=== PATIENT | female | born 1950 | race African-American/Black ===

== ENCOUNTER 2016-12-18 20:09 | Emergency (ER) | payer MEDICARE, OTHER ==
[~2016-12-18] VITALS: Ht 172.7 cm; Wt 68.0 kg
--- NOTE | 2016-12-18 20:09 | Emergency Room Report ---
History of Present Illness General Source: Patient, EMS Present Illness HPI 64YOF BIBEMS for "discoloration of right heel." Assoc with pain Denies fever/chills, rash History of DM Atraumatic Contracted extremities chronically No calf pain/ttp/swelling Allergies: Coded Allergies: No Known Allergies (Unverified , 12/18/16) Patient History Past Medical History: DM Past Surgical History: none Pertinent Family History: none Social History: Denies: smoking, alcohol use, drug use Now: No Immunizations: UTD Reviewed Nursing Documentation: PMH: Agreed, PSxH: Agreed Review of Systems All Other Systems: negative except mentioned in HPI Physical Exam Sp02 EP Interpretation: reviewed, normal General Appearance: normal inspection, well appearing, no apparent distress, alert, GCS 15, non-toxic Head: normocephalic, atraumatic Eyes: bilateral eye PERRL, bilateral eye EOMI ENT: normal ENT inspection, hearing grossly normal, normal voice Neck: normal inspection, full range of motion, supple, no bony tend Respiratory: normal inspection, lungs clear, normal breath sounds, no respiratory distress, no retraction, no wheezing Cardiovascular #1: regular rate, rhythm, no edema Gastrointestinal: normal inspection, normal bowel sounds, non tender, soft, no guarding, no hernia Genitourinary: no CVA tenderness Musculoskeletal: normal inspection, back normal, normal range of motion, Idalia' s Sign negative Neurologic: normal inspection, alert, oriented x3, 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 No discoloration. No erythema. No cellulitis. No pallor. 2++ dorsalis pedis Medical Decision Making Diagnostic Impression: Primary Impression: Right foot pain ER Course Right foot pain VSS. Afebrile History of DM There is a small bunion on heel - no ulcer Contracted chronically No sign of cellulitis/infection Full ROM of foot. Normal color - unlikely PAD or PVD Analgesia provided DC back to SNF Informed PMD Dr Joel at 910pm that patient sent back to SNF Status: improved Disposition: XFER SNF Scripts Acetaminophen With Codeine (T#3) (TYLENOL #3 TAB*) Y Tab 1 TAB ORAL Q12 Y for foot pain, #20 TAB Prov: DESIREE ALBA M.D. 12/18/16 DESIREE ALBA M.D. Dec 18, 2016 20:09
[2016-12-18] MEDS ORDERED: ACETAMINOPHEN-1 EAC1 ORAL (20:11)
[2016-12-18 20:15] VITALS: BP 125/76
[2016-12-18 20:28] VITALS: BP 122/74
[2016-12-18] MEDS ORDERED: METOLAZONE5 MG PO (22:00)
[2016-12-18] MEDS ORDERED: MILK OF MA400 MG/51 ORAL (22:00)
[2016-12-18] MEDS ORDERED: LOSARTAN POTASS25 MG ORAL (22:00)
[2016-12-18] MEDS ORDERED: ASPIR 8181 MG ORAL (22:00)
[2016-12-18] MEDS ORDERED: ACETAMINOPHEN325 M1 ORAL (22:00)
[2016-12-18] MEDS ORDERED: DOCUSATE SODIU250 MG ORAL (22:00)
[2016-12-18] MEDS ORDERED: BENADRYL25 MG ORAL (22:00)
[2016-12-18] MEDS ORDERED: MULTIVITAMINS1 EAC2 ORAL (22:00)
[2016-12-18] MEDS ORDERED: LABETALOL HCL100 MG ORAL (22:00)
[2016-12-18] MEDS ORDERED: ELIQUIS2.5 MG PO (22:00)
[2016-12-18] MEDS ORDERED: OMEPRAZOLE40 M1 ORAL (22:00)
[2016-12-18] MEDS ORDERED: ADALAT10 MG ORAL (22:00)
[2016-12-18] MEDS ORDERED: VITAMIN C250 MG ORAL (22:00)
[2016-12-18] MEDS ORDERED: NORVASC5 MG ORAL (22:00)
[2016-12-18] MEDS ORDERED: FUROSEMIDE40 MG ORAL (22:00)
[2016-12-18] MEDS ORDERED: NITRO-BID1 GM TOPIC (22:00)
[2016-12-18] MEDS ORDERED: NORCO 10-325 T1 EACH ORAL (22:00)
== END 2016-12-18 20:30 ==
LOC: EDBD 20:09 → EMR 20:25
DX: M79.671 Pain in right foot (principal); M21.611 Bunion of right foot; E11.9 Type 2 diabetes mellitus without complications
CPT/HCPCS: 99283

== ENCOUNTER 2016-12-19 20:32 | Inpatient (IN) | payer MEDICARE, OTHER ==
[~2016-12-19] VITALS: Ht 172.7 cm; Wt 103.4 kg
[~2016-12-19 20:32] MED LIST: ACETAMINOPHEN-1 EAC1 ORAL; ACETAMINOPHEN325 M1 ORAL; ADALAT10 MG ORAL; ASPIR 8181 MG ORAL; BENADRYL25 MG ORAL; DOCUSATE SODIU250 MG ORAL; ELIQUIS2.5 MG PO; FUROSEMIDE40 MG ORAL; LABETALOL HCL100 MG ORAL; LOSARTAN POTASS25 MG ORAL; METOLAZONE5 MG PO; MILK OF MA400 MG/51 ORAL; MULTIVITAMINS1 EAC2 ORAL; NITRO-BID1 GM TOPIC; NORCO 10-325 T1 EACH ORAL; NORVASC5 MG ORAL; OMEPRAZOLE40 M1 ORAL; VITAMIN C250 MG ORAL
--- NOTE | 2016-12-19 20:36 | Emergency Room Report ---
History of Present Illness General Chief Complaint: Pain Source: Patient, EMS, PMD Present Illness HPI 66YOF sent by Dr Joel with DVT in right lower extremity Dr Joel stated was diagnosed earlier today Patient denies chest pain, SOB, abd pain, fever/chills No known prior history DVT/PE Allergies: Coded Allergies: No Known Allergies (Unverified , 12/18/16) Patient History Past Medical History: old chart reviewed Past Surgical History: none Pertinent Family History: none Social History: Denies: smoking, alcohol use, drug use Now: No Immunizations: UTD Reviewed Nursing Documentation: PMH: Agreed, PSxH: Agreed Nursing Documentation-PMH Hx Cardiac Problems: Yes - CHF,CAD,DVT Hx Gastrointestinal Problems: Yes - GERD Review of Systems All Other Systems: negative except mentioned in HPI Physical Exam Vital Signs Date Time Temp Pulse Resp B/P (MAP) Pulse Ox O2 Delivery O2 Flow Rate FiO2 12/19/16 20:25 98.6 72 18 157/80 97 Room Air Sp02 EP Interpretation: reviewed, normal General Appearance: normal inspection, well appearing, no apparent distress, alert Head: atraumatic ENT: normal ENT inspection, hearing grossly normal, normal voice Neck: normal inspection, full range of motion, supple, no bony tend Respiratory: normal inspection, lungs clear, normal breath sounds, no respiratory distress, no retraction, no wheezing Cardiovascular #1: regular rate, rhythm, no edema Gastrointestinal: normal inspection, normal bowel sounds, non tender, soft, no guarding, no hernia Genitourinary: no CVA tenderness Musculoskeletal: normal inspection, back normal, normal range of motion, Idalia' s Sign negative, other - right lower extrem: No calf ttp. negative Homans. No foot discoloration. No cellulitis. 2++ dorsalis pedis. No thigh pain/swelling. 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 No leuks. Sono here with DVT on verbal report from tech No chest pain, SOB, tachycardia/tachypnea - low suspicion for PE Lovenox given in ED renally-dosed at 1mg/kg Endorsed to Dr Joel for admission at 10pm Med/surg bed EKG Diagnostic Results Rate: normal Rhythm: NSR ST Segments: no acute changes ASA given to the pt in ED: No Rhythm Strip Diag. Results EP Interpretation: yes Rate: 75 Rhythm: NSR, no ectopy Chest X-Ray Diagnostic Results Chest X-Ray Diagnostic Results : Chest X-Ray Ordered: Yes # of Views/Limited/Complete: 1 View Indication: Other - DVT EP Interpretation: Yes Interpretation: no consolidation, no effusion, no pneumothorax, no acute cardiopulmonary disease Impression: No acute disease Electronically Signed by: Dr Desiree Alba MD Last Vital Signs Date Time Temp Pulse Resp B/P (MAP) Pulse Ox O2 Delivery O2 Flow Rate FiO2 12/19/16 20:25 98.6 72 18 157/80 97 Room Air Status: improved Disposition: ADMITTED INPATIENT Condition: Serious DESIREE ALBA M.D. Dec 19, 2016 20:36
[2016-12-19 21:10] LABS: BASOPHILS % (AUTO) 1.3 % (0.0-2.0); EOSINOPHILS % (AUTO) 2.5 % (0.0-3.0); LYMPHOCYTES % (AUTO) 27.1 % (20.0-45.0); MEAN CORPUSCULAR HEMOGLOBIN 29.4 PG (27.0-31.0); MEAN CORPUSCULAR HGB CONC 32.3 G/DL (32.0-36.0); MEAN CORPUSCULAR VOLUME 91 FL (80-99); MEAN PLATELET VOLUME 6.3 FL (6.5-10.1); MONOCYTES % (AUTO) 4.1 % (1.0-10.0); NEUTROPHILS % (AUTO) 65.1 % (45.0-75.0); PLATELET COUNT 317 K/UL (150-450); RED BLOOD COUNT 4.27 M/UL (4.20-5.40); RED CELL DISTRIBUTION WIDTH 12.4 % (11.6-14.8); WHITE BLOOD COUNT 9.2 K/UL (4.8-10.8)
[2016-12-19] MEDS ORDERED: Enoxaparin 150mg Inj SUBQ SCH (21:30)
[2016-12-19 21:31] LABS: ALANINE AMINOTRANSFERASE 9 U/L (3-33); ALBUMIN/GLOBULIN RATIO 0.8 (1.0-2.7); ANION GAP 10 (5-15); ASPARTATE AMINO TRANSFERASE 15 U/L (5-40); CALCIUM 9.4 mg/dL (8.6-10.2); CARBON DIOXIDE 28 mEQ/L (20-30); CHLORIDE 105 mEQ/L (98-107); CREATININE 1.5 mg/dL (0.5-0.9); GLOMERULAR FILTRATION RATE 42.3 mL/min (>60); HEMOLYSIS 65; SODIUM 143 mEQ/L (135-145); TOTAL PROTEIN 7.1 g/dL (6.6-8.7)
[2016-12-19] MEDS ORDERED: Enoxaparin 120 mg inj SUBQ SCH (21:45)
[2016-12-19] MEDS ORDERED: Enoxaparin 80mg Inj SUBQ ONE (22:00)
[2016-12-19] MEDS ORDERED: LORazepam Inj 2mg/ml 1ml IV PRN (22:15)
[2016-12-19] MEDS ORDERED: Zolpidem 5mg tab ORAL PRN (22:15)
[2016-12-19] MEDS ORDERED: Mylanta II UD 30ml ORAL PRN (22:15)
[2016-12-19] MEDS ORDERED: Miralax 17gm pkt ORAL PRN (22:15)
[2016-12-19 22:28] VITALS: BP 145/89
[2016-12-19 23:00] VITALS: BP 117/72
[2016-12-19 23:45] LABS: INR 0.9 (0.9-1.1); PROTHROMBIN TIME 9.8 SEC (9.30-11.50)
[2016-12-20] VITALS: BP 120/75
[2016-12-20 04:00] VITALS: BP 108/65
[2016-12-20 07:08] LABS: BASOPHILS % (AUTO) 1.2 % (0.0-2.0); EOSINOPHILS % (AUTO) 3.1 % (0.0-3.0); LYMPHOCYTES % (AUTO) 37.1 % (20.0-45.0); MEAN CORPUSCULAR HEMOGLOBIN 28.9 PG (27.0-31.0); MEAN CORPUSCULAR HGB CONC 31.8 G/DL (32.0-36.0); MEAN CORPUSCULAR VOLUME 91 FL (80-99); MEAN PLATELET VOLUME 6.8 FL (6.5-10.1); MONOCYTES % (AUTO) 5.2 % (1.0-10.0); NEUTROPHILS % (AUTO) 53.5 % (45.0-75.0); PLATELET COUNT 308 K/UL (150-450); RED BLOOD COUNT 3.97 M/UL (4.20-5.40); RED CELL DISTRIBUTION WIDTH 12.6 % (11.6-14.8); WHITE BLOOD COUNT 10.2 K/UL (4.8-10.8)
[2016-12-20 07:34] LABS: ALBUMIN/GLOBULIN RATIO 0.8 (1.0-2.7); CALCIUM 9.3 mg/dL (8.6-10.2); CHOLESTEROL/HDL RATIO 7.5 (3.3-4.4); CREATININE 1.5 mg/dL (0.5-0.9); GLOMERULAR FILTRATION RATE 42.3 mL/min (>60); POTASSIUM 4.7 mEQ/L (3.4-4.9); TOTAL PROTEIN 6.8 g/dL (6.6-8.7)
[2016-12-20 08:00] VITALS: BP 118/66
[2016-12-20] MEDS: Losartan 25mg tab ORAL SCH (08:56)
[2016-12-20] MEDS: Furosemide 40mg tab ORAL SCH (08:56)
[2016-12-20] MEDS ORDERED: Enoxaparin 80mg Inj SUBQ SCH (09:00)
[2016-12-20] MEDS: Heparin 25,000u/D5W 500ml 500 ML IV SCH ×3 (09:29→17:10)
--- NOTE | 2016-12-20 09:44 | Diagnostic Imaging Report ---
Indication: Shortness of breath Technique: XRAY CHEST 1 V Comparison: None Findings: Cardiac silhouette is prominent. Atherosclerotic changes are seen. There is no consolidation, pneumothorax or pleural effusion. Degenerative changes of the spine are present. Impression: No acute cardiopulmonary disease.
--- NOTE | 2016-12-20 11:32 | Consultation ---
History of Present Illness General Date patient seen: Dec 20, 2016 Time patient seen: 09:30 Chief Complaint: Pain Referring physician: dr Joel Reason for Consultation: inpatient management Present Illness HPI 66y/ol female with PMH of HTN, CKD, DM was sent from SNF for acute DVT RLE, diagnosed prior to sending to ER Patient denied chest pain, SOB, abd pain, fever/chills Workup in ED revealed acute DVT RLE, Lovenox given in ED VSS no leukocytosis, stable HH BUN/creat -70/1,5- c/w known hx of CKD glucose -112 CXR no acute cardiopulmonary disease ECG with NSR patient was admitted for further amangeemtn of DVT Allergies: Coded Allergies: No Known Allergies (Unverified , 12/18/16) Medication History Scheduled Amlodipine Besylate (Norvasc), 5 MG ORAL DAILY, (Reported) Apixaban (Eliquis), 2.5 MG PO BID, (Reported) Ascorbic Acid* (Vitamin C*), 250 MG ORAL DAILY, (Reported) Aspirin* (Aspir 81*), 81 MG ORAL DAILY, (Reported) Docusate Sodium* (Docusate Sodium*), 250 MG ORAL DAILY, (Reported) Furosemide* (Lasix*), 40 MG ORAL DAILY, (Reported) Labetalol Hcl* (Normodyne*), 100 MG ORAL EVERY 12 HOURS, (Reported) Losartan Potassium* (Losartan Potassium*), 25 MG ORAL DAILY, (Reported) Metolazone (Metolazone), 5 MG PO DAILY, (Reported) Multivitamins* (Multivitamins*), 1 TAB ORAL DAILY, (Reported) Nifedipine (Nifedipine*), 30 MG ORAL BEDTIME, (Reported) Nitroglycerin (Nitro-Bid*), 1 INCH TOPIC BID, (Reported) Omeprazole (Omeprazole), 40 MG ORAL DAILY, (Reported) Scheduled PRN Acetaminophen With Codeine (T#3) (Tylenol #3 Tab*), 1 TAB ORAL Q12 PRN for foot pain Acetaminophen* (Acetaminophen 325MG Tablet*), 325 MG ORAL Q6H PRN for For Pain, (Reported) Diphenhydramine Hcl* (Benadryl*), 25 MG ORAL Q6H PRN for Itching, (Reported) Hydrocodone Bit/Acetaminophen 10-325* ([place] 10-325*), 1 TAB ORAL Q4H PRN for For Pain, (Reported) Magnesium Hydroxide* (Milk Of Magnesia*), 30 ML ORAL BID PRN for Constipation, ( Reported) Patient History History Provided By: Patient Healthcare decision maker Resuscitation status Full Code Advanced Directive on File No Past Medical/Surgical History Past Medical/Surgical History: (1) CKD (chronic kidney disease) (2) Diabetes mellitus (3) HTN (hypertension) Review of Systems Constitutional: Reports: weakness Eye: Reports: no symptoms ENT: Reports: no symptoms Respiratory: Reports: no symptoms Cardiovascular: Reports: other - HTN, high cholesterol Gastrointestinal: Reports: constipation Genitourinary: Reports: no symptoms Musculoskeletal: Reports: joint pain Skin: Reports: no symptoms Psychiatric: Reports: no symptoms Endocrine: Reports: other - diabetes Hematologic/Lymphatic: Reports: see HPI Physical Exam General Appearance: no apparent distress, alert, obese - responsive Lines, tubes and drains: peripheral HEENT: normocephalic, atraumatic, anicteric, mucous membranes moist Neck: non-tender, supple Respiratory/Chest: lungs clear - with moderate air exchange, no respiratory distress, no accessory muscle use Cardiovascular/Chest: normal peripheral pulses, normal rate, regular rhythm, no JVD Extremities: other - +1 edema RLE mild TTP Neurologic: abnormal gait, alert, responsive Musculoskeletal: atrophy - BLE Last 24 Hour Vital Signs Date Time Temp Pulse Resp B/P (MAP) Pulse Ox O2 Delivery O2 Flow Rate FiO2 12/20/16 08:56 118/66 12/20/16 08:56 62 118/66 12/20/16 08:56 62 118/66 12/20/16 08:00 97.5 62 16 118/66 97 Room Air 12/20/16 04:00 97.9 61 18 108/65 95 Room Air 12/20/16 00:00 98.0 70 18 120/75 96 Room Air 12/19/16 23:00 97.9 69 18 117/72 95 Room Air 12/19/16 22:28 98.6 60 18 145/89 97 Room Air 12/19/16 22:28 98.6 60 18 145/89 97 Room Air 12/19/16 20:25 98.6 72 18 157/80 97 Room Air Intake and Output 12/20/16 12/21/16 19:00 07:00 Intake Total 74.448 ml Balance 74.448 ml IV Total 74.448 ml Laboratory Tests Test 12/19/16 20:52 12/19/16 21:50 12/20/16 06:20 12/20/16 06:30 White Blood Count 9.2 K/UL (4.8-10.8) 10.2 K/UL (4.8-10.8) Red Blood Count 4.27 M/UL (4.20-5.40) 3.97 M/UL (4.20-5.40) L Hemoglobin 12.6 G/DL (12.0-16.0) 11.5 G/DL (12.0-16.0) L Hematocrit 39.0 % (37.0-47.0) 36.1 % (37.0-47.0) L Mean Corpuscular Volume 91 FL (80-99) 91 FL (80-99) Mean Corpuscular Hemoglobin 29.4 PG (27.0-31.0) 28.9 PG (27.0-31.0) Mean Corpuscular Hemoglobin Concent 32.3 G/DL (32.0-36.0) 31.8 G/DL (32.0-36.0) L Red Cell Distribution Width 12.4 % (11.6-14.8) 12.6 % (11.6-14.8) Platelet Count 317 K/UL (150-450) 308 K/UL (150-450) Mean Platelet Volume 6.3 FL (6.5-10.1) L 6.8 FL (6.5-10.1) Neutrophils (%) (Auto) 65.1 % (45.0-75.0) 53.5 % (45.0-75.0) Lymphocytes (%) (Auto) 27.1 % (20.0-45.0) 37.1 % (20.0-45.0) Monocytes (%) (Auto) 4.1 % (1.0-10.0) 5.2 % (1.0-10.0) Eosinophils (%) (Auto) 2.5 % (0.0-3.0) 3.1 % (0.0-3.0) H Basophils (%) (Auto) 1.3 % (0.0-2.0) 1.2 % (0.0-2.0) D-Dimer 734 ng/mL (<500) H Sodium Level 143 mEQ/L (135-145) 146 mEQ/L (135-145) H Potassium Level 5.0 mEQ/L (3.4-4.9) H 4.7 mEQ/L (3.4-4.9) Chloride Level 105 mEQ/L (98-107) 108 mEQ/L (98-107) H Carbon Dioxide Level 28 mEQ/L (20-30) 27 mEQ/L (20-30) Anion Gap 10 (5-15) 11 (5-15) Blood Urea Nitrogen 70 mg/dL (7-23) H 76 mg/dL (7-23) H Creatinine 1.5 mg/dL (0.5-0.9) H 1.5 mg/dL (0.5-0.9) H Estimat Glomerular Filtration Rate 42.3 mL/min (>60) 42.3 mL/min (>60) Glucose Level 112 mg/dL (74-106) H 102 mg/dL (74-106) Calcium Level 9.4 mg/dL (8.6-10.2) 9.3 mg/dL (8.6-10.2) Total Bilirubin < 0.2 mg/dL (0.0-1.2) 0.2 mg/dL (0.0-1.2) Aspartate Amino Transf (AST/SGOT) 15 U/L (5-40) 10 U/L (5-40) Alanine Aminotransferase (ALT/SGPT) 9 U/L (3-33) 6 U/L (3-33) Alkaline Phosphatase 136 U/L (35-104) H 125 U/L (35-104) H Total Protein 7.1 g/dL (6.6-8.7) 6.8 g/dL (6.6-8.7) Albumin 3.2 g/dL (3.5-5.2) L 3.2 g/dL (3.5-5.2) L Globulin 3.9 g/dL 3.6 g/dL Albumin/Globulin Ratio 0.8 (1.0-2.7) L 0.8 (1.0-2.7) L Prothrombin Time 9.8 SEC (9.30-11.50) Prothromb Time International Ratio 0.9 (0.9-1.1) Activated Partial Thromboplast Time 28 SEC (23-33) > 150 SEC (23-33) *H Triglycerides Level 99 mg/dL (< 150) Cholesterol Level 321 mg/dL (< 200) H LDL Cholesterol 258 mg/dL (60-99) H HDL Cholesterol 43 mg/dL (> 60) Cholesterol/HDL Ratio 7.5 (3.3-4.4) H Height (Feet): 5 Height (Inches): 8.00 Weight (Pounds): 228 Medications Current Medications Medications (Trade) Dose Ordered Sig/Keanu Route PRN Reason Start Time Stop Time Status Last Admin Dose Admin Acetaminophen (Tylenol) 650 mg Q4H PRN ORAL fever 12/19/16 22:15 01/18/17 22:14 Al Hydroxide/Mg Hydroxide (Mylanta II) 30 ml Q6H PRN ORAL dyspepsia 12/19/16 22:15 01/18/17 22:14 Amlodipine Besylate (Norvasc) 5 mg DAILY ORAL 12/20/16 09:00 01/19/17 08:59 Dextrose (Dextrose 50%) STAT PRN IV Hypoglycemia 12/19/16 22:15 01/18/17 22:14 Furosemide (Lasix) 40 mg DAILY ORAL 12/20/16 09:00 01/19/17 08:59 12/20/16 08:56 Heparin Sodium/ Dextrose 500 ml @ 28.957 mls/ hr adjust per protocol IV 12/20/16 09:10 01/19/17 09:09 12/20/16 09:29 Labetalol HCl (Normodyne) 100 mg EVERY 12 HOURS ORAL 12/20/16 09:00 01/19/17 08:59 Lorazepam (Ativan 2mg/ml 1ml) 0.5 mg Q4H PRN IV For Anxiety 12/19/16 22:15 12/26/16 22:14 Losartan Potassium (Cozaar) 25 mg DAILY ORAL 12/20/16 09:00 01/19/17 08:59 Morphine Sulfate (Morphine Sulfate) 1 mg Q4H PRN IVP For Pain 12/19/16 22:15 12/26/16 22:14 Nifedipine (Adalat) 30 mg BEDTIME ORAL 12/20/16 21:00 01/19/17 20:59 Ondansetron HCl (Zofran) 4 mg Q6H PRN IVP Nausea & Vomiting 12/19/16 22:15 01/18/17 22:14 Polyethylene Glycol (Miralax) 17 gm HSPRN PRN ORAL Constipation 12/19/16 22:15 01/18/17 22:14 Warfarin Sodium (Coumadin per pharmacy) 1 ea DAILY PRN MISC Per rx protocol 12/20/16 09:45 01/19/17 09:44 Warfarin Sodium (Coumadin) 5 mg COUMADIN ONCE ORAL 12/20/16 17:00 12/20/16 17:01 Zolpidem Tartrate (Ambien) 5 mg HSPRN PRN ORAL Insomnia 12/19/16 22:15 12/26/16 22:14 Assessment/Plan Assessment/Plan ASSESSMENT acute DVT RLE ( from SNF) HTN DM CKD Hyperlipemia mild anemia PLAN OF CARE MS floor venous Duplex BLE in ED verbal report + acute DVT RLE started on Heparin gtt and Coumadin to bridge Medications from SNF were reviewed and noted pt was on Eliquis unknown if prior hx of DVT vs PAF NSR in ED BP management with multiple regimen of anti HTN and optimize as needed BS management ( DM type 2), no anti glycemic from SNF , BS stable, hold on medications and check Hga1c first lipid panel with elevated LDL and TC educated on low fat low cholesterol diabetic diet start statin mild anemia on this am labs, likely due to CKD monitor renal parameters, lytes, avoid nephrotoxic case discussed and evaluated by supervising physician Adam Vidal)Mariola NP Dec 20, 2016 11:32
[2016-12-20 12:00] VITALS: BP 107/59
[2016-12-20] MEDS: Morphine Sulfate 2mg/ml Inj IVP PRN ×3 (15:12→20:42)
[2016-12-20 16:00] VITALS: BP 116/69
[2016-12-20] MEDS ORDERED: Warfarin Sodium 5mg ORAL ONE (17:00)
[2016-12-20] MEDS ORDERED: Heparin 25,000u/D5W 500ml 500 ML IV SCH ×2 (17:00)
[2016-12-20 20:00] VITALS: BP 122/61
[2016-12-20] MEDS: Atorvastatin 20mg tab ORAL SCH (20:41)
[2016-12-20] MEDS: NIFEdipine 10mg cap ORAL SCH (20:41)
[2016-12-21] VITALS: BP 117/67
--- NOTE | 2016-12-21 00:45 | History and Physical Report ---
DATE OF ADMISSION: 12/19/2016 TIME: At 3 p.m. CONSULTANTS: 1. Dr. Delgado. 2. Bridget Mohr M.D. CHIEF COMPLAINT: Deep venous thrombosis. Brief History: This is a 66-year-old female from [facility] who presents with a DVT of the leg. The patient apparently had been getting swelling and slightly tender in the leg. Duplex showed DVT and the patient was sent to [place] and admitted to medical floor. Currently, calm in bed, not talking much. Past Medical History: CVA, left lower extremity weakness, hypertension, diabetes, and edema. PAST SURGICAL HISTORY: None. Medications: Adalat, Lipitor, Coumadin, Norvasc, Lasix, Normodyne, Cozaar, Tylenol, Zofran, Ambien, and Ativan. ALLERGIES: Denies. SOCIAL HISTORY: No smoking. No alcohol. No intravenous drug abuse. FAMILY HISTORY: Noncontributory. Review of Systems: No chest pain. Slight short of breath. No nausea, vomiting, or diarrhea. PHYSICAL EXAMINATION: GENERAL: Calm in bed, oriented x2, in no acute distress. Vital Signs: Temperature is 97 degrees, pulse 62, respirations 16, and blood pressure 107/59. CARDIOVASCULAR: No murmurs. LUNGS: Poor exchange. ABDOMEN: Bowel sounds are positive. Nontender and nondistended. EXTREMITIES: No cyanosis or clubbing. There is 1+ edema. Neurological: The patient moves all extremities. Lower extremity weakness noted. Laboratory And Diagnostic Data: Hemoglobin 11.5, otherwise CBC is normal. BMP shows sodium 146, chloride 108, BUN and creatinine 26 and 1.5 and glucose is 102. PTT is greater than 150 and INR is 0.9. ASSESSMENT: 1. Deep vein thrombosis. 2. Cerebrovascular accident. 3. Lower extremity weakness. 4. Hypertension. 5. Diabetes. 6. Edema. 7. Renal failure. 8. Anemia. Plan: Continue pre-medications. OT/PT. Dietary evaluation. CBC and BMP in the morning. Anticoagulate. Blood pressure and blood sugar control. Dietary followup. Dr. Delgado, Dr. Mohr, and Dr. Mosher to consult. Froilan Joel D.O. DR: FADI JOB#: [id number] CC:
[2016-12-21] MEDS: Morphine Sulfate 2mg/ml Inj IVP PRN ×2 (03:08→17:27)
[2016-12-21 04:00] VITALS: BP 134/60
[2016-12-21 07:00] LABS: BASOPHILS % (AUTO) 1.1 % (0.0-2.0); LYMPHOCYTES % (AUTO) 43.8 % (20.0-45.0); MEAN CORPUSCULAR HGB CONC 32.3 G/DL (32.0-36.0); MEAN CORPUSCULAR VOLUME 90 FL (80-99); MEAN PLATELET VOLUME 6.9 FL (6.5-10.1); MONOCYTES % (AUTO) 5.3 % (1.0-10.0); NEUTROPHILS % (AUTO) 46.8 % (45.0-75.0); PLATELET COUNT 290 K/UL (150-450); RED CELL DISTRIBUTION WIDTH 12.2 % (11.6-14.8); WHITE BLOOD COUNT 10.4 K/UL (4.8-10.8)
[2016-12-21 08:00] VITALS: BP 98/55
[2016-12-21] MEDS: Losartan 25mg tab ORAL SCH (09:00)
--- NOTE | 2016-12-21 09:03 | General Progress Note ---
Assessment/Plan Problem List: (1) DVT (deep venous thrombosis) ICD Codes: I82.409 - Acute embolism and thrombosis of unspecified deep veins of unspecified lower extremity SNOMED: 566579653 Qualifiers: Qualified Codes: I82.4Z1 - Acute embolism and thrombosis of unspecified deep veins of right distal lower extremity (2) Diabetes mellitus ICD Codes: E11.9 - Type 2 diabetes mellitus without complications SNOMED: 16916769 (3) HTN (hypertension) ICD Codes: I10 - Essential (primary) hypertension SNOMED: 35729312 (4) CKD (chronic kidney disease) ICD Codes: N18.9 - Chronic kidney disease, unspecified SNOMED: 127084824 Status: stable, progressing, tolerating diet Assessment/Plan ot pt diet anticoag cbc bmp am Subjective Constitutional: Reports: weakness Allergies: Coded Allergies: No Known Allergies (Unverified , 12/18/16) All Systems: reviewed and negative except above Subjective sleepy calm Objective Last 24 Hour Vital Signs Date Time Temp Pulse Resp B/P (MAP) Pulse Ox O2 Delivery O2 Flow Rate FiO2 12/21/16 04:00 98.2 68 19 134/60 96 Room Air 12/21/16 03:38 98.2 12/21/16 00:00 98.2 72 20 117/67 96 Room Air 12/20/16 20:41 76 122/71 12/20/16 20:41 76 122/71 12/20/16 20:00 98.1 76 19 122/61 96 Room Air 12/20/16 16:00 97.9 76 16 116/69 94 Room Air 12/20/16 12:00 97.9 16 107/59 96 Room Air Laboratory Tests 12/20/16 15:10: Activated Partial Thromboplast Time 124H 12/20/16 23:35: Activated Partial Thromboplast Time 75H 12/21/16 04:55: Activated Partial Thromboplast Time 71H, White Blood Count 10.4, Red Blood Count 3.70L, Hemoglobin 10.8L, Hematocrit 33.3L, Mean Corpuscular Volume 90, Mean Corpuscular Hemoglobin 29.0, Mean Corpuscular Hemoglobin Concent 32.3, Red Cell Distribution Width 12.2, Platelet Count 290, Mean Platelet Volume 6.9, Neutrophils (%) (Auto) 46.8, Lymphocytes (%) (Auto) 43.8, Monocytes (%) (Auto) 5.3, Eosinophils (%) (Auto) 3.0, Basophils (%) (Auto) 1.1, Prothrombin Time 10.0 , Prothromb Time International Ratio 1.0, Hemoglobin A1c 5.3 Height (Feet): 5 Height (Inches): 8.00 Weight (Pounds): 228 General Appearance: lethargic EENT: normal ENT inspection Neck: normal alignment Cardiovascular: normal peripheral pulses, normal rate, regular rhythm Respiratory/Chest: chest wall non-tender, lungs clear, normal breath sounds Abdomen: normal bowel sounds, non tender, soft Extremities: normal inspection Edema: 1+ Arm (L), 1+ Arm (R), 1+ Leg (L), 1+ Leg (R), 1+ Pedal (L), 1+ Pedal ( R), 1+ Generalized Neurologic: motor weakness Skin: normal pigmentation, warm/dry TANNA NORWOOD Dec 21, 2016 09:03
[2016-12-21] MEDS: Furosemide 40mg tab ORAL SCH (09:34)
[2016-12-21 12:00] VITALS: BP 156/75
--- NOTE | 2016-12-21 12:28 | Pulmonology Progress Note ---
Assessment/Plan Assessment/Plan ASSESSMENT acute DVT RLE HTN DM CKD Hyperlipemia mild anemia PLAN OF CARE MS floor in ED venous Duplex BLE c/w acute RLE DVT on Heparin gtt and Coumadin to bridge INR subtherapeutic Of note: Medications from SNF were reviewed and noted pt was on Eliquis unknown if prior hx of DVT vs PAF NSR in ED BP management with multiple regimen of anti HTN and optimize as needed BS management ( DM type 2), no anti glycemic from SNF , BS stable, hold on medications and check Hga1c first lipid panel with elevated LDL and TC educated on low fat low cholesterol diabetic diet started on statin anemia , likely due to CKD anemia w/up monitor counts clsoely monitor renal parameters, lytes, avoid nephrotoxic creat at the same range case discussed and evaluated by supervising physician Subjective Allergies: Coded Allergies: No Known Allergies (Unverified , 12/18/16) Subjective intermittent pain RLE no SOB, no chest pain, no palpitations Objective Last 24 Hour Vital Signs Date Time Temp Pulse Resp B/P (MAP) Pulse Ox O2 Delivery O2 Flow Rate FiO2 12/21/16 09:00 98/55 12/21/16 09:00 68 98/55 12/21/16 09:00 68 98/55 12/21/16 08:00 97.7 68 16 98/55 97 Room Air 12/21/16 04:00 98.2 68 19 134/60 96 Room Air 12/21/16 03:38 98.2 12/21/16 00:00 98.2 72 20 117/67 96 Room Air 12/20/16 20:41 76 122/71 12/20/16 20:41 76 122/71 12/20/16 20:00 98.1 76 19 122/61 96 Room Air 12/20/16 16:00 97.9 76 16 116/69 94 Room Air Objective General Appearance: no apparent distress, alert, obese, responsive Lines, tubes and drains: peripheral HEENT: normocephalic, atraumatic, anicteric, mucous membranes moist Neck: non-tender, supple Respiratory/Chest: lungs clear with moderate air exchange, no respiratory distress, no accessory muscle use Cardiovascular/Chest: normal peripheral pulses, normal rate, regular rhythm, no JVD Extremities: +1 edema RLE mild TTP Neurologic: abnormal gait, alert, responsive Musculoskeletal: atrophy - BLE Laboratory Tests 12/20/16 15:10: Activated Partial Thromboplast Time 124H 12/20/16 23:35: Activated Partial Thromboplast Time 75H 12/21/16 04:55: Activated Partial Thromboplast Time 71H, White Blood Count 10.4, Red Blood Count 3.70L, Hemoglobin 10.8L, Hematocrit 33.3L, Mean Corpuscular Volume 90, Mean Corpuscular Hemoglobin 29.0, Mean Corpuscular Hemoglobin Concent 32.3, Red Cell Distribution Width 12.2, Platelet Count 290, Mean Platelet Volume 6.9, Neutrophils (%) (Auto) 46.8, Lymphocytes (%) (Auto) 43.8, Monocytes (%) (Auto) 5.3, Eosinophils (%) (Auto) 3.0, Basophils (%) (Auto) 1.1, Prothrombin Time 10.0 , Prothromb Time International Ratio 1.0, Hemoglobin A1c 5.3 Current Medications Medications (Trade) Dose Ordered Sig/Keanu Route PRN Reason Start Time Stop Time Status Last Admin Dose Admin Acetaminophen (Tylenol) 650 mg Q4H PRN ORAL fever 12/19/16 22:15 01/18/17 22:14 Al Hydroxide/Mg Hydroxide (Mylanta II) 30 ml Q6H PRN ORAL dyspepsia 12/19/16 22:15 01/18/17 22:14 Amlodipine Besylate (Norvasc) 5 mg DAILY ORAL 12/20/16 09:00 01/19/17 08:59 Atorvastatin Calcium (Lipitor) 20 mg BEDTIME ORAL 12/20/16 21:00 01/19/17 20:59 12/20/16 20:41 Dextrose (Dextrose 50%) STAT PRN IV Hypoglycemia 12/20/16 12:00 01/19/17 11:59 Furosemide (Lasix) 40 mg DAILY ORAL 12/20/16 09:00 01/19/17 08:59 12/21/16 09:34 Heparin Sodium/ Dextrose 500 ml @ 22.752 mls/ hr adjust per protocol IV 12/20/16 17:00 01/19/17 16:59 12/20/16 17:10 Labetalol HCl (Normodyne) 100 mg EVERY 12 HOURS ORAL 12/20/16 09:00 01/19/17 08:59 12/20/16 20:41 Lorazepam (Ativan 2mg/ml 1ml) 0.5 mg Q4H PRN IV For Anxiety 12/19/16 22:15 12/26/16 22:14 Losartan Potassium (Cozaar) 25 mg DAILY ORAL 12/20/16 09:00 01/19/17 08:59 Morphine Sulfate (Morphine Sulfate) 1 mg Q4H PRN IVP Moderate Pain (Pain Scale 4-6) 12/20/16 22:15 12/27/16 22:14 Morphine Sulfate (Morphine Sulfate) 2 mg Q4H PRN IVP Severe Pain (Pain Scale 7-10) 12/20/16 20:30 12/27/16 20:29 12/21/16 03:08 Nifedipine (Adalat) 30 mg BEDTIME ORAL 12/20/16 21:00 01/19/17 20:59 12/20/16 20:41 Ondansetron HCl (Zofran) 4 mg Q6H PRN IVP Nausea & Vomiting 12/19/16 22:15 01/18/17 22:14 Polyethylene Glycol (Miralax) 17 gm HSPRN PRN ORAL Constipation 12/19/16 22:15 01/18/17 22:14 Warfarin Sodium (Coumadin per pharmacy) 1 ea DAILY PRN MISC Per rx protocol 12/20/16 09:45 01/19/17 09:44 Warfarin Sodium (Coumadin) 5 mg COUMADIN ONCE ORAL 12/21/16 17:00 12/21/16 17:01 Zolpidem Tartrate (Ambien) 5 mg HSPRN PRN ORAL Insomnia 12/19/16 22:15 12/26/16 22:14 Adam ManzanoMariola watters NP Dec 21, 2016 12:28
[2016-12-21] MEDS: Heparin 25,000u/D5W 500ml 500 ML IV SCH (13:19)
[2016-12-21 13:36] LABS: HEMOLYSIS 5; IRON 88 ug/dL (37-145); TOTAL IRON BINDING CAPACITY 175 ug/dL (250-400)
[2016-12-21 13:54] LABS: FERRITIN 555 ng/mL (13-150)
[2016-12-21 16:50] VITALS: BP 137/68
[2016-12-21] MEDS ORDERED: Warfarin Sodium 5mg ORAL ONE (17:00)
[2016-12-21 20:00] VITALS: BP 139/76
--- NOTE | 2016-12-21 20:57 | Consultation ---
History of Present Illness General Chief Complaint: Pain Referring physician: dr Joel Reason for Consultation: JULIANNE, Hypernatrenia Present Illness HPI Ms canales is a 66-year-old female, resident of [facility] with a PMHx significant for CVA, DM, HTN, who presents with a DVT of the leg. The patient apparently had leg swelling with tenderness and was transferred for further evaluation. Duplex showed DVT RLE, lab revealed elevated BUN/cr. Sodium elevated as well Allergies: Coded Allergies: No Known Allergies (Unverified , 12/18/16) Medication History Scheduled Amlodipine Besylate (Norvasc), 5 MG ORAL DAILY, (Reported) Apixaban (Eliquis), 2.5 MG PO BID, (Reported) Ascorbic Acid* (Vitamin C*), 250 MG ORAL DAILY, (Reported) Aspirin* (Aspir 81*), 81 MG ORAL DAILY, (Reported) Docusate Sodium* (Docusate Sodium*), 250 MG ORAL DAILY, (Reported) Furosemide* (Lasix*), 40 MG ORAL DAILY, (Reported) Labetalol Hcl* (Normodyne*), 100 MG ORAL EVERY 12 HOURS, (Reported) Losartan Potassium* (Losartan Potassium*), 25 MG ORAL DAILY, (Reported) Metolazone (Metolazone), 5 MG PO DAILY, (Reported) Multivitamins* (Multivitamins*), 1 TAB ORAL DAILY, (Reported) Nifedipine (Nifedipine*), 30 MG ORAL BEDTIME, (Reported) Nitroglycerin (Nitro-Bid*), 1 INCH TOPIC BID, (Reported) Omeprazole (Omeprazole), 40 MG ORAL DAILY, (Reported) Scheduled PRN Acetaminophen With Codeine (T#3) (Tylenol #3 Tab*), 1 TAB ORAL Q12 PRN for foot pain Acetaminophen* (Acetaminophen 325MG Tablet*), 325 MG ORAL Q6H PRN for For Pain, (Reported) Diphenhydramine Hcl* (Benadryl*), 25 MG ORAL Q6H PRN for Itching, (Reported) Hydrocodone Bit/Acetaminophen 10-325* (Hammond 10-325*), 1 TAB ORAL Q4H PRN for For Pain, (Reported) Magnesium Hydroxide* (Milk Of Magnesia*), 30 ML ORAL BID PRN for Constipation, ( Reported) Patient History Healthcare decision maker Resuscitation status Full Code Advanced Directive on File No Past Medical/Surgical History Past Medical/Surgical History: (1) Diabetes mellitus (2) HTN (hypertension) (3) CKD (chronic kidney disease) Review of Systems All Other Systems: negative except mentioned in HPI Physical Exam General Appearance: no apparent distress, alert Last 24 Hour Vital Signs Date Time Temp Pulse Resp B/P (MAP) Pulse Ox O2 Delivery O2 Flow Rate FiO2 12/21/16 16:50 98.1 63 16 137/68 100 Room Air 12/21/16 12:00 97.9 80 16 156/75 100 Room Air 12/21/16 09:00 98/55 12/21/16 09:00 68 98/55 12/21/16 09:00 68 98/55 12/21/16 08:00 97.7 68 16 98/55 97 Room Air 12/21/16 04:00 98.2 68 19 134/60 96 Room Air 12/21/16 03:38 98.2 12/21/16 00:00 98.2 72 20 117/67 96 Room Air Intake and Output 12/21/16 12/22/16 19:00 07:00 Intake Total 250.272 ml Balance 250.272 ml IV Total 250.272 ml # Voids 1 Laboratory Tests Test 12/20/16 23:35 12/21/16 04:55 Activated Partial Thromboplast Time 75 SEC (23-33) H 71 SEC (23-33) H White Blood Count 10.4 K/UL (4.8-10.8) Red Blood Count 3.70 M/UL (4.20-5.40) L Hemoglobin 10.8 G/DL (12.0-16.0) L Hematocrit 33.3 % (37.0-47.0) L Mean Corpuscular Volume 90 FL (80-99) Mean Corpuscular Hemoglobin 29.0 PG (27.0-31.0) Mean Corpuscular Hemoglobin Concent 32.3 G/DL (32.0-36.0) Red Cell Distribution Width 12.2 % (11.6-14.8) Platelet Count 290 K/UL (150-450) Mean Platelet Volume 6.9 FL (6.5-10.1) Neutrophils (%) (Auto) 46.8 % (45.0-75.0) Lymphocytes (%) (Auto) 43.8 % (20.0-45.0) Monocytes (%) (Auto) 5.3 % (1.0-10.0) Eosinophils (%) (Auto) 3.0 % (0.0-3.0) Basophils (%) (Auto) 1.1 % (0.0-2.0) Prothrombin Time 10.0 SEC (9.30-11.50) Prothromb Time International Ratio 1.0 (0.9-1.1) Hemoglobin A1c 5.3 % (< 6.0) Iron Level 88 ug/dL (37-145) Total Iron Binding Capacity 175 ug/dL (250-400) L Percent Iron Saturation 50 % (15-50) Unsaturated Iron Binding 87 ug/dL (112-346) L Ferritin 555 ng/mL (13-150) H Vitamin B12 Level 346 pg/mL (211-946) Folate Pending Height (Feet): 5 Height (Inches): 8.00 Weight (Pounds): 228 Medications Current Medications Medications (Trade) Dose Ordered Sig/Keanu Route PRN Reason Start Time Stop Time Status Last Admin Dose Admin Acetaminophen (Tylenol) 650 mg Q4H PRN ORAL fever 12/19/16 22:15 01/18/17 22:14 Al Hydroxide/Mg Hydroxide (Mylanta II) 30 ml Q6H PRN ORAL dyspepsia 12/19/16 22:15 01/18/17 22:14 Amlodipine Besylate (Norvasc) 5 mg DAILY ORAL 12/20/16 09:00 01/19/17 08:59 Atorvastatin Calcium (Lipitor) 20 mg BEDTIME ORAL 12/20/16 21:00 01/19/17 20:59 12/20/16 20:41 Dextrose (Dextrose 50%) STAT PRN IV Hypoglycemia 12/20/16 12:00 01/19/17 11:59 Furosemide (Lasix) 40 mg DAILY ORAL 12/20/16 09:00 01/19/17 08:59 12/21/16 09:34 Heparin Sodium/ Dextrose 500 ml @ 22.752 mls/ hr adjust per protocol IV 12/20/16 17:00 01/19/17 16:59 12/21/16 13:19 Labetalol HCl (Normodyne) 100 mg EVERY 12 HOURS ORAL 12/20/16 09:00 01/19/17 08:59 12/20/16 20:41 Lorazepam (Ativan 2mg/ml 1ml) 0.5 mg Q4H PRN IV For Anxiety 12/19/16 22:15 12/26/16 22:14 Losartan Potassium (Cozaar) 25 mg DAILY ORAL 12/20/16 09:00 01/19/17 08:59 Morphine Sulfate (Morphine Sulfate) 1 mg Q4H PRN IVP Moderate Pain (Pain Scale 4-6) 12/20/16 22:15 12/27/16 22:14 12/21/16 17:27 Morphine Sulfate (Morphine Sulfate) 2 mg Q4H PRN IVP Severe Pain (Pain Scale 7-10) 12/20/16 20:30 12/27/16 20:29 12/21/16 03:08 Nifedipine (Adalat) 30 mg BEDTIME ORAL 12/20/16 21:00 01/19/17 20:59 12/20/16 20:41 Ondansetron HCl (Zofran) 4 mg Q6H PRN IVP Nausea & Vomiting 12/19/16 22:15 01/18/17 22:14 Polyethylene Glycol (Miralax) 17 gm HSPRN PRN ORAL Constipation 12/19/16 22:15 01/18/17 22:14 Warfarin Sodium (Coumadin per pharmacy) 1 ea DAILY PRN MISC Per rx protocol 12/20/16 09:45 01/19/17 09:44 Zolpidem Tartrate (Ambien) 5 mg HSPRN PRN ORAL Insomnia 12/19/16 22:15 12/26/16 22:14 Assessment/Plan Problem List: (1) DVT (deep venous thrombosis) ICD Codes: I82.409 - Acute embolism and thrombosis of unspecified deep veins of unspecified lower extremity SNOMED: 091660827 Qualifiers: Qualified Codes: I82.4Z1 - Acute embolism and thrombosis of unspecified deep veins of right distal lower extremity (2) CKD (chronic kidney disease) ICD Codes: N18.9 - Chronic kidney disease, unspecified SNOMED: 171503752 (3) HTN (hypertension) ICD Codes: I10 - Essential (primary) hypertension SNOMED: 92631307 (4) Diabetes mellitus ICD Codes: E11.9 - Type 2 diabetes mellitus without complications SNOMED: 64332688 Assessment/Plan Monitor intake and output Renally dose meds, avoid nephrotoxins Monitor lytes, correct prn Pain med as needed Continue Heparin per protocol PPI Continue glycemic control Hematology consult recommended AM labs Desirae Andrews N.P. Dec 21, 2016 20:57
[2016-12-21] MEDS: Atorvastatin 20mg tab ORAL SCH (21:18)
[2016-12-21] MEDS: NIFEdipine 10mg cap ORAL SCH (21:19)
[2016-12-22] VITALS: BP 123/60
[2016-12-22 04:00] VITALS: BP 121/59
[2016-12-22 06:54] LABS: BASOPHILS % (AUTO) 1.2 % (0.0-2.0); EOSINOPHILS % (AUTO) 2.9 % (0.0-3.0); LYMPHOCYTES % (AUTO) 37.6 % (20.0-45.0); MEAN CORPUSCULAR HEMOGLOBIN 27.9 PG (27.0-31.0); MEAN CORPUSCULAR HGB CONC 31.3 G/DL (32.0-36.0); MEAN CORPUSCULAR VOLUME 89 FL (80-99); MEAN PLATELET VOLUME 7.1 FL (6.5-10.1); MONOCYTES % (AUTO) 5.1 % (1.0-10.0); NEUTROPHILS % (AUTO) 53.2 % (45.0-75.0); PLATELET COUNT 290 K/UL (150-450); RED BLOOD COUNT 3.77 M/UL (4.20-5.40); RED CELL DISTRIBUTION WIDTH 12.1 % (11.6-14.8); WHITE BLOOD COUNT 9.6 K/UL (4.8-10.8)
[2016-12-22 06:59] LABS: CALCIUM 8.7 mg/dL (8.6-10.2); CREATININE 1.5 mg/dL (0.5-0.9); GLOMERULAR FILTRATION RATE 42.3 mL/min (>60); POTASSIUM 4.6 mEQ/L (3.4-4.9)
[2016-12-22 07:07] LABS: PROTHROMBIN TIME 10.2 SEC (9.30-11.50)
[2016-12-22] MEDS ORDERED: Heparin 5000 units/ml inj IV ONE (08:00)
[2016-12-22] MEDS: Morphine Sulfate 2mg/ml Inj IVP PRN ×3 (08:07→18:14)
[2016-12-22] MEDS: Heparin 25,000u/D5W 500ml 500 ML IV SCH (08:20)
[2016-12-22 08:28] VITALS: BP 106/55
[2016-12-22] MEDS: Furosemide 40mg tab ORAL SCH (08:49)
[2016-12-22] MEDS: Losartan 25mg tab ORAL SCH (08:50)
--- NOTE | 2016-12-22 11:00 | Consultation ---
DATE OF CONSULTATION: 12/20/2016 HEMATOLOGY/ONCOLOGY CONSULTATION CONSULTING PHYSICIAN: Fernando Delgado M.D. REQUESTING PHYSICIAN: Froilan Joel D.O. REASON FOR CONSULTATION: Evaluation of DVT. IDENTIFICATION DATA: Dear Dr. Joel: The patient is a pleasant 66-year-old female with a past medical history significant for diabetes mellitus, CKD, hypertension, , acute DVT of bilateral lower extremities. She was sent in to the ER for evaluation and care. Hematology service was consulted. Again, the patient has a history of CKD as well as anemia. Hematology/Oncology service was consulted for evaluation. PAST MEDICAL HISTORY: As noted above. ALLERGIES: No known drug allergies. Current Medications: Adalat, edoxaban, Lasix, losartan, metolazone, multivitamin, nifedipine, nitroglycerin and omeprazole. Review Of Systems: Constitutional: No fever, chills, or night sweats. Skin: No rashes, bumps, or itching. HEENT: No headache, hearing or vision changes. Breasts: No lumps, pain, or discharge. Pulmonary: No cough, sputum, or shortness of breath. Gastrointestinal: No nausea, vomiting, or diarrhea. Genitourinary: No dysuria, frequency, or urgency. Musculoskeletal: No joint swelling, muscle pain, or trauma. PHYSICAL EXAMINATION: Vital Signs: Temperature 98 degrees Fahrenheit, pulse of 82, respiratory rate 12, blood pressure 118/60, and pulse oximetry 97% on room air. GENERAL: The patient is in no acute distress. PULMONARY: Diminished breath sounds. CARDIOVASCULAR: Regular rate. No S3 or S4. ABDOMEN: Soft, nontender, and nondistended. Extremities: There is 1+ edema in bilateral lower extremities. Tenderness to palpation. some atrophy is noted. Laboratory And Diagnostic Data: WBC 10.2, hemoglobin 11.5, hematocrit 36, and platelet count 388,000. Imaging: Chest x-ray reviewed, no acute cardiopulmonary process. . ASSESSMENT AND PLAN: 1. Acute deep venous thrombosis of bilateral lower extremities . At this time, we will continue the patient on Coumadin. INR . She should keep her INR between 2 and 3, as well as a heparin drip, and discharge once INR is at 2. Heparin drip has been used as a bridge. 2. Anemia secondary to chronic disease. 3. Anemia secondary to hemodilution. We will proceed with workup if hemoglobin is less than 10. 4. Hyperlipidemia management as per the primary physician. 5. Chronic kidney disease. I appreciate the consultation. Fernando Delgado M.D. DR: JAYCE JOB#: [id number] CC:
[2016-12-22 11:39] VITALS: BP 128/62
--- NOTE | 2016-12-22 12:52 | Diagnostic Imaging Report ---
APPROVED REPORT CPT Code: 78337 Present Symptoms Lower Extremity Pain: Right Lower Extremity Edema: Right Past History DVT :Right RIGHT LEG: Venous imaging reveals acute thrombus in the common femoral and superficial femoral veins. Remainder of the deep venous system is within normal limits. There is no evidence of thrombus within the mid to distal superficial femoral, popliteal or tibial segments. The greater saphenous vein is also within normal limits. DR. Little was notified of abnormal results at 09:45 hours.
--- NOTE | 2016-12-22 14:19 | General Progress Note ---
Assessment/Plan Problem List: (1) DVT (deep venous thrombosis) ICD Codes: I82.409 - Acute embolism and thrombosis of unspecified deep veins of unspecified lower extremity SNOMED: 999793153 Qualifiers: Qualified Codes: I82.4Z1 - Acute embolism and thrombosis of unspecified deep veins of right distal lower extremity (2) Diabetes mellitus ICD Codes: E11.9 - Type 2 diabetes mellitus without complications SNOMED: 64374534 (3) HTN (hypertension) ICD Codes: I10 - Essential (primary) hypertension SNOMED: 17286065 (4) CKD (chronic kidney disease) ICD Codes: N18.9 - Chronic kidney disease, unspecified SNOMED: 886478129 Status: stable, progressing, tolerating diet Assessment/Plan ot pt diet anticoag cbc bmp am promise ltach eval Subjective Constitutional: Reports: weakness Allergies: Coded Allergies: No Known Allergies (Unverified , 12/18/16) All Systems: reviewed and negative except above Subjective sleepy calm Objective Last 24 Hour Vital Signs Date Time Temp Pulse Resp B/P (MAP) Pulse Ox O2 Delivery O2 Flow Rate FiO2 12/22/16 11:39 97.8 66 19 128/62 96 Room Air 12/22/16 08:50 106/55 12/22/16 08:50 67 106/55 12/22/16 08:50 67 106/55 12/22/16 08:28 97.9 67 20 106/55 96 Room Air 12/22/16 04:00 97.8 67 18 121/59 97 Room Air 97.0 12/22/16 00:00 98.4 70 18 123/60 97 Room Air 12/21/16 21:19 65 139/76 12/21/16 21:17 65 139/76 12/21/16 20:00 97.8 65 18 139/76 96 Room Air 12/21/16 16:50 98.1 63 16 137/68 100 Room Air Intake and Output 12/22/16 12/23/16 19:00 07:00 Intake Total 134.445 ml Balance 134.445 ml IV Total 134.445 ml Laboratory Tests 12/22/16 06:24: White Blood Count 9.6, Red Blood Count 3.77L, Hemoglobin 10.5L, Hematocrit 33.5L , Mean Corpuscular Volume 89, Mean Corpuscular Hemoglobin 27.9, Mean Corpuscular Hemoglobin Concent 31.3L, Red Cell Distribution Width 12.1, Platelet Count 290, Mean Platelet Volume 7.1, Neutrophils (%) (Auto) 53.2, Lymphocytes (%) (Auto) 37.6, Monocytes (%) (Auto) 5.1, Eosinophils (%) (Auto) 2.9, Basophils (%) (Auto) 1.2, Prothrombin Time 10.2, Prothromb Time International Ratio 1.0, Activated Partial Thromboplast Time 55H, Sodium Level 141, Potassium Level 4.6, Chloride Level 104, Carbon Dioxide Level 25, Anion Gap 12, Blood Urea Nitrogen 83H, Creatinine 1.5H, Estimat Glomerular Filtration Rate 42.3, Glucose Level 97, Calcium Level 8.7, Pro-B-Type Natriuretic Peptide 559H Height (Feet): 5 Height (Inches): 8.00 Weight (Pounds): 228 General Appearance: lethargic EENT: normal ENT inspection Neck: normal alignment Cardiovascular: normal peripheral pulses, normal rate, regular rhythm Respiratory/Chest: chest wall non-tender, lungs clear, normal breath sounds Abdomen: normal bowel sounds, non tender, soft Extremities: normal inspection Edema: 1+ Arm (L), 1+ Arm (R), 1+ Leg (L), 1+ Leg (R), 1+ Pedal (L), 1+ Pedal ( R), 1+ Generalized Neurologic: responsive, motor weakness Skin: normal pigmentation, warm/dry TANNA NORWOOD Dec 22, 2016 14:19
--- NOTE | 2016-12-22 15:39 | Pulmonology Progress Note ---
Assessment/Plan Problems: (1) DVT (deep venous thrombosis) (2) HTN (hypertension) (3) Diabetes mellitus Assessment/Plan on heparin and comadin symptomatic treatment Hem consult reviewed sliding scale diabetic diet Subjective Constitutional: Reports: no symptoms HEENT: Repors: no symptoms Respiratory: Reports: no symptoms Allergies: Coded Allergies: No Known Allergies (Unverified , 12/18/16) Objective Last 24 Hour Vital Signs Date Time Temp Pulse Resp B/P (MAP) Pulse Ox O2 Delivery O2 Flow Rate FiO2 12/22/16 11:39 97.8 66 19 128/62 96 Room Air 12/22/16 08:50 106/55 12/22/16 08:50 67 106/55 12/22/16 08:50 67 106/55 12/22/16 08:28 97.9 67 20 106/55 96 Room Air 12/22/16 04:00 97.8 67 18 121/59 97 Room Air 97.0 12/22/16 00:00 98.4 70 18 123/60 97 Room Air 12/21/16 21:19 65 139/76 12/21/16 21:17 65 139/76 12/21/16 20:00 97.8 65 18 139/76 96 Room Air 12/21/16 16:50 98.1 63 16 137/68 100 Room Air Intake and Output 12/22/16 12/23/16 19:00 07:00 Intake Total 134.445 ml Balance 134.445 ml IV Total 134.445 ml General Appearance: WD/WN HEENT: normocephalic, atraumatic Respiratory/Chest: chest wall non-tender, lungs clear Breasts: no masses Cardiovascular: normal peripheral pulses, normal rate Abdomen: normal bowel sounds, soft, non tender Extremities: no cyanosis, no clubbing 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: 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 normal, no motor/sensory deficits Laboratory Tests 12/22/16 06:24: White Blood Count 9.6, Red Blood Count 3.77L, Hemoglobin 10.5L, Hematocrit 33.5L , Mean Corpuscular Volume 89, Mean Corpuscular Hemoglobin 27.9, Mean Corpuscular Hemoglobin Concent 31.3L, Red Cell Distribution Width 12.1, Platelet Count 290, Mean Platelet Volume 7.1, Neutrophils (%) (Auto) 53.2, Lymphocytes (%) (Auto) 37.6, Monocytes (%) (Auto) 5.1, Eosinophils (%) (Auto) 2.9, Basophils (%) (Auto) 1.2, Prothrombin Time 10.2, Prothromb Time International Ratio 1.0, Activated Partial Thromboplast Time 55H, Sodium Level 141, Potassium Level 4.6, Chloride Level 104, Carbon Dioxide Level 25, Anion Gap 12, Blood Urea Nitrogen 83H, Creatinine 1.5H, Estimat Glomerular Filtration Rate 42.3, Glucose Level 97, Calcium Level 8.7, Pro-B-Type Natriuretic Peptide 559H 12/22/16 14:55: Activated Partial Thromboplast Time 90H Current Medications Medications (Trade) Dose Ordered Sig/Keanu Route PRN Reason Start Time Stop Time Status Last Admin Dose Admin Acetaminophen (Tylenol) 650 mg Q4H PRN ORAL fever 12/19/16 22:15 01/18/17 22:14 Al Hydroxide/Mg Hydroxide (Mylanta II) 30 ml Q6H PRN ORAL dyspepsia 12/19/16 22:15 01/18/17 22:14 Amlodipine Besylate (Norvasc) 5 mg DAILY ORAL 12/20/16 09:00 01/19/17 08:59 Atorvastatin Calcium (Lipitor) 20 mg BEDTIME ORAL 12/20/16 21:00 01/19/17 20:59 12/21/16 21:18 Dextrose (Dextrose 50%) STAT PRN IV Hypoglycemia 12/20/16 12:00 01/19/17 11:59 Furosemide (Lasix) 40 mg DAILY ORAL 12/20/16 09:00 01/19/17 08:59 12/22/16 08:49 Heparin Sodium/ Dextrose 500 ml @ 26.889 mls/ hr adjust per protocol IV 12/22/16 08:00 01/21/17 07:59 12/22/16 08:20 Labetalol HCl (Normodyne) 100 mg EVERY 12 HOURS ORAL 12/20/16 09:00 01/19/17 08:59 12/21/16 21:17 Lorazepam (Ativan 2mg/ml 1ml) 0.5 mg Q4H PRN IV For Anxiety 12/19/16 22:15 12/26/16 22:14 Losartan Potassium (Cozaar) 25 mg DAILY ORAL 12/20/16 09:00 01/19/17 08:59 Morphine Sulfate (Morphine Sulfate) 1 mg Q4H PRN IVP Moderate Pain (Pain Scale 4-6) 12/20/16 22:15 12/27/16 22:14 12/22/16 08:07 Morphine Sulfate (Morphine Sulfate) 2 mg Q4H PRN IVP Severe Pain (Pain Scale 7-10) 12/20/16 20:30 12/27/16 20:29 12/22/16 12:58 Nifedipine (Procardia XL) 30 mg BEDTIME ORAL 12/22/16 21:00 01/19/17 20:59 Ondansetron HCl (Zofran) 4 mg Q6H PRN IVP Nausea & Vomiting 12/19/16 22:15 01/18/17 22:14 Polyethylene Glycol (Miralax) 17 gm HSPRN PRN ORAL Constipation 12/19/16 22:15 01/18/17 22:14 Warfarin Sodium (Coumadin per pharmacy) 1 ea DAILY PRN MISC Per rx protocol 12/20/16 09:45 01/19/17 09:44 Warfarin Sodium (Coumadin) 7.5 mg COUMADIN ONCE ORAL 12/22/16 17:00 12/22/16 17:01 Zolpidem Tartrate (Ambien) 5 mg HSPRN PRN ORAL Insomnia 12/19/16 22:15 12/26/16 22:14 GEORGE HERNANDEZ Dec 22, 2016 15:39
[2016-12-22 15:52] VITALS: BP 122/65
[2016-12-22] MEDS ORDERED: Warfarin Sodium 7.5mg ORAL ONE (17:00)
[2016-12-22 20:00] VITALS: BP 138/69
[2016-12-22] MEDS: Atorvastatin 20mg tab ORAL SCH (20:59)
--- NOTE | 2016-12-22 21:34 | General Progress Note ---
Assessment/Plan Assessment/Plan ASSESSMENT AND PLAN: 1. Acute deep venous thrombosis of right leg, at the common femoral vein. --> continue coumadin, heparin drip has been started as well to bridge. INR goal between 2-3. Ok to DC heparin once inr reaches 2. 2. Anemia secondary to chronic disease. Work up reviewed. No iron deficiency. 3. Anemia secondary to hemodilution. 4. Hyperlipidemia management as per the primary physician. 5. Chronic kidney disease. Subjective Constitutional: Reports: no symptoms HEENT: Reports: no symptoms Cardiovascular: Reports: no symptoms Respiratory: Reports: no symptoms Gastrointestinal/Abdominal: Reports: no symptoms Genitourinary: Reports: no symptoms 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: Reports: no symptoms Endocrine: Reports: no symptoms Hematologic/Lymphatic: Reports: no symptoms Allergies: Coded Allergies: No Known Allergies (Unverified , 12/18/16) Objective Last 24 Hour Vital Signs Date Time Temp Pulse Resp B/P (MAP) Pulse Ox O2 Delivery O2 Flow Rate FiO2 12/22/16 21:00 67 138/69 12/22/16 21:00 67 138/69 12/22/16 20:00 98.4 67 20 138/69 94 Room Air 12/22/16 15:52 97.6 65 20 122/65 97 Room Air 12/22/16 11:39 97.8 66 19 128/62 96 Room Air 12/22/16 08:50 106/55 12/22/16 08:50 67 106/55 12/22/16 08:50 67 106/55 12/22/16 08:28 97.9 67 20 106/55 96 Room Air 12/22/16 04:00 97.8 67 18 121/59 97 Room Air 97.0 12/22/16 00:00 98.4 70 18 123/60 97 Room Air Intake and Output 12/22/16 12/23/16 19:00 07:00 Intake Total 828.890 ml 26.889 ml Output Total 600 ml Balance 228.890 ml 26.889 ml Intake Oral 560 ml IV Total 268.890 ml 26.889 ml Output Urine Total 600 ml Laboratory Tests 12/22/16 06:24: White Blood Count 9.6, Red Blood Count 3.77L, Hemoglobin 10.5L, Hematocrit 33.5L , Mean Corpuscular Volume 89, Mean Corpuscular Hemoglobin 27.9, Mean Corpuscular Hemoglobin Concent 31.3L, Red Cell Distribution Width 12.1, Platelet Count 290, Mean Platelet Volume 7.1, Neutrophils (%) (Auto) 53.2, Lymphocytes (%) (Auto) 37.6, Monocytes (%) (Auto) 5.1, Eosinophils (%) (Auto) 2.9, Basophils (%) (Auto) 1.2, Prothrombin Time 10.2, Prothromb Time International Ratio 1.0, Activated Partial Thromboplast Time 55H, Sodium Level 141, Potassium Level 4.6, Chloride Level 104, Carbon Dioxide Level 25, Anion Gap 12, Blood Urea Nitrogen 83H, Creatinine 1.5H, Estimat Glomerular Filtration Rate 42.3, Glucose Level 97, Calcium Level 8.7, Pro-B-Type Natriuretic Peptide 559H 12/22/16 14:55: Activated Partial Thromboplast Time 90H Height (Feet): 5 Height (Inches): 8.00 Weight (Pounds): 228 General Appearance: no apparent distress EENT: normal ENT inspection Neck: normal alignment Cardiovascular: normal rate Respiratory/Chest: no accessory muscle use Abdomen: non tender Fernando Delgado Dec 22, 2016 21:34
--- NOTE | 2016-12-22 23:27 | Nephrology Progress Note ---
Assessment/Plan Problem List: (1) DVT (deep venous thrombosis) (2) CKD (chronic kidney disease) (3) HTN (hypertension) (4) Diabetes mellitus Plan on heparin and comadin symptomatic treatment Hematology following Gentle ivf Continue glycemic control Monitor intake and output Renally dose meds, avoid nephrotoxins Monitor lytes, correct prn Pain med as needed Continue Heparin per protocol PPI AM labs Subjective Constitutional: Denies: no symptoms, chills, diaphoresis, fever, malaise, weakness, other HEENT: Denies: no symptoms, eye pain, blurred vision, tearing, double vision, ear pain, ear discharge, nose pain, nose congestion, throat pain, throat swelling, mouth pain, mouth swelling, other Genitourinary: Denies: no symptoms, burning, discharge, frequency, flank pain, hematuria, incontinence, pain, urgency, other 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: Denies: no symptoms, anxiety, depressed, emotional problems, headache, numbness, paresthesia, pre-existing deficit, seizure, tingling, tremors, weakness, other Objective Objective Last 24 Hour Vital Signs Date Time Temp Pulse Resp B/P (MAP) Pulse Ox O2 Delivery O2 Flow Rate FiO2 12/22/16 21:00 67 138/69 12/22/16 21:00 67 138/69 12/22/16 20:00 98.4 67 20 138/69 94 Room Air 12/22/16 15:52 97.6 65 20 122/65 97 Room Air 12/22/16 11:39 97.8 66 19 128/62 96 Room Air 12/22/16 08:50 106/55 12/22/16 08:50 67 106/55 12/22/16 08:50 67 106/55 12/22/16 08:28 97.9 67 20 106/55 96 Room Air 12/22/16 04:00 97.8 67 18 121/59 97 Room Air 97.0 12/22/16 00:00 98.4 70 18 123/60 97 Room Air Intake and Output 12/22/16 12/23/16 19:00 07:00 Intake Total 828.890 ml 107.556 ml Output Total 600 ml Balance 228.890 ml 107.556 ml Intake Oral 560 ml IV Total 268.890 ml 107.556 ml Output Urine Total 600 ml Laboratory Tests 12/22/16 06:24: White Blood Count 9.6, Red Blood Count 3.77L, Hemoglobin 10.5L, Hematocrit 33.5L , Mean Corpuscular Volume 89, Mean Corpuscular Hemoglobin 27.9, Mean Corpuscular Hemoglobin Concent 31.3L, Red Cell Distribution Width 12.1, Platelet Count 290, Mean Platelet Volume 7.1, Neutrophils (%) (Auto) 53.2, Lymphocytes (%) (Auto) 37.6, Monocytes (%) (Auto) 5.1, Eosinophils (%) (Auto) 2.9, Basophils (%) (Auto) 1.2, Prothrombin Time 10.2, Prothromb Time International Ratio 1.0, Activated Partial Thromboplast Time 55H, Sodium Level 141, Potassium Level 4.6, Chloride Level 104, Carbon Dioxide Level 25, Anion Gap 12, Blood Urea Nitrogen 83H, Creatinine 1.5H, Estimat Glomerular Filtration Rate 42.3, Glucose Level 97, Calcium Level 8.7, Pro-B-Type Natriuretic Peptide 559H 12/22/16 14:55: Activated Partial Thromboplast Time 90H Height (Feet): 5 Height (Inches): 8.00 Weight (Pounds): 228 General Appearance: no apparent distress EENT: normal ENT inspection Neck: normal alignment Cardiovascular: normal rate, no JVD Respiratory/Chest: normal breath sounds, no respiratory distress Abdomen: soft, no mass Extremities: trace edema Neurologic: responsive, normal mood/affect Desirae Andrews N.P. Dec 22, 2016 23:27
[2016-12-23] VITALS: BP 141/76
[2016-12-23] MEDS: Morphine Sulfate 2mg/ml Inj IVP PRN (03:05)
[2016-12-23 04:13] VITALS: BP 134/69
[2016-12-23 04:55] LABS: BASOPHILS % (AUTO) 1.1 % (0.0-2.0); LYMPHOCYTES % (AUTO) 38.6 % (20.0-45.0); MEAN CORPUSCULAR HEMOGLOBIN 27.7 PG (27.0-31.0); MEAN CORPUSCULAR HGB CONC 30.7 G/DL (32.0-36.0); MEAN CORPUSCULAR VOLUME 90 FL (80-99); MEAN PLATELET VOLUME 6.7 FL (6.5-10.1); MONOCYTES % (AUTO) 4.9 % (1.0-10.0); NEUTROPHILS % (AUTO) 52.4 % (45.0-75.0); PLATELET COUNT 293 K/UL (150-450); RED BLOOD COUNT 3.72 M/UL (4.20-5.40); RED CELL DISTRIBUTION WIDTH 12.6 % (11.6-14.8); WHITE BLOOD COUNT 10.5 K/UL (4.8-10.8)
[2016-12-23 05:19] LABS: INR 1.1 (0.9-1.1); PROTHROMBIN TIME 11.6 SEC (9.30-11.50)
[2016-12-23 05:28] LABS: CALCIUM 8.9 mg/dL (8.6-10.2); CREATININE 1.5 mg/dL (0.5-0.9); GLOMERULAR FILTRATION RATE 42.3 mL/min (>60); POTASSIUM 4.7 mEQ/L (3.4-4.9)
[2016-12-23] MEDS: Heparin 25,000u/D5W 500ml 500 ML IV SCH (05:37)
[2016-12-23] MEDS ORDERED: Heparin 25,000u/D5W 500ml 500 ML IV SCH (06:30)
[2016-12-23 08:15] VITALS: BP 122/59
[2016-12-23] MEDS: Losartan 25mg tab ORAL SCH (09:00)
[2016-12-23] MEDS: Furosemide 40mg tab ORAL SCH (09:11)
--- NOTE | 2016-12-23 09:45 | Wound Care Consultation ---
Wound Assessment Wound Assessment : Wound Number: 1 Wound Present on Admission: Yes New Wound: No Status Change of Wound: No Wound Location Body Site Modif: right Wound Location Body Site: heel Wound Type: pressure ulcer Leida Test: Does not Leida Pressure Ulcer Stage: deep tissue injury Wound Thickness: Full Thickness Wound Length: 6.0 Wound Width: 4.0 Wound Depth: utd Percent of Wound Purple/Maroon: 100 Wound Drainage Amount: None Wound Drainage Odor: None/Absent Tissue Surrounding Wound: Intact Wound General Appearance: Reddened - purple Wound Comment #1 Right heel DTI pressure ulcer #2 Left 2nd anterior toe with dry scab Recommendation -Local wound care per protocol for DTI -Optimize nutrition -Offload both heels -Heel protector on both heels -Low air loss mattress -Turn and reposition -Keep clean and dry -Assess and f/u accordingly for any changes JANETH BANDA RN Dec 23, 2016 09:45
[2016-12-23 12:15] VITALS: BP 132/68
--- NOTE | 2016-12-23 13:09 | General Progress Note ---
Assessment/Plan Problem List: (1) DVT (deep venous thrombosis) ICD Codes: I82.409 - Acute embolism and thrombosis of unspecified deep veins of unspecified lower extremity SNOMED: 377658347 Qualifiers: Qualified Codes: I82.4Z1 - Acute embolism and thrombosis of unspecified deep veins of right distal lower extremity (2) Diabetes mellitus ICD Codes: E11.9 - Type 2 diabetes mellitus without complications SNOMED: 54655652 (3) HTN (hypertension) ICD Codes: I10 - Essential (primary) hypertension SNOMED: 94555231 (4) CKD (chronic kidney disease) ICD Codes: N18.9 - Chronic kidney disease, unspecified SNOMED: 578499657 Status: stable, progressing, tolerating diet Assessment/Plan ot pt diet anticoag cbc bmp am dc plan Subjective Constitutional: Reports: weakness Allergies: Coded Allergies: No Known Allergies (Unverified , 12/18/16) All Systems: reviewed and negative except above Subjective sleepy calm Objective Last 24 Hour Vital Signs Date Time Temp Pulse Resp B/P (MAP) Pulse Ox O2 Delivery O2 Flow Rate FiO2 12/23/16 12:15 97.4 66 19 132/68 99 Room Air 12/23/16 09:11 64 122/59 12/23/16 09:00 122/59 12/23/16 09:00 64 122/59 12/23/16 08:15 97.3 64 20 122/59 97 Room Air 12/23/16 04:13 98.2 65 20 134/69 95 Room Air 12/23/16 00:00 98.2 71 20 141/76 98 Room Air 12/22/16 21:00 67 138/69 12/22/16 21:00 67 138/69 12/22/16 20:00 98.4 67 20 138/69 94 Room Air 12/22/16 15:52 97.6 65 20 122/65 97 Room Air Intake and Output 12/23/16 12/24/16 19:00 07:00 Intake Total 240 ml Balance 240 ml Intake Oral 240 ml Laboratory Tests 12/22/16 14:55: Activated Partial Thromboplast Time 90H 12/23/16 04:10: Activated Partial Thromboplast Time 99H, White Blood Count 10.5, Red Blood Count 3.72L, Hemoglobin 10.3L, Hematocrit 33.5L, Mean Corpuscular Volume 90, Mean Corpuscular Hemoglobin 27.7, Mean Corpuscular Hemoglobin Concent 30.7L, Red Cell Distribution Width 12.6, Platelet Count 293, Mean Platelet Volume 6.7, Neutrophils (%) (Auto) 52.4, Lymphocytes (%) (Auto) 38.6, Monocytes (%) (Auto) 4.9, Eosinophils (%) (Auto) 3.0, Basophils (%) (Auto) 1.1, Prothrombin Time 11.6H, Prothromb Time International Ratio 1.1, Sodium Level 143, Potassium Level 4.7, Chloride Level 107, Carbon Dioxide Level 23, Anion Gap 13, Blood Urea Nitrogen 81H, Creatinine 1.5H, Estimat Glomerular Filtration Rate 42.3, Glucose Level 103, Calcium Level 8.9 12/23/16 12:25: Activated Partial Thromboplast Time 81H Height (Feet): 5 Height (Inches): 8.00 Weight (Pounds): 228 General Appearance: lethargic EENT: normal ENT inspection Neck: normal alignment Cardiovascular: normal peripheral pulses, normal rate, regular rhythm Respiratory/Chest: chest wall non-tender, lungs clear, normal breath sounds Abdomen: normal bowel sounds, non tender, soft Extremities: normal inspection Edema: no edema noted Arm (L), no edema noted Arm (R), no edema noted Leg (L), no edema noted Leg (R), no edema noted Pedal (L), no edema noted Pedal (R), no edema noted Generalized Neurologic: responsive, motor weakness Skin: normal pigmentation, warm/dry TANNA NORWOOD Dec 23, 2016 13:09
[2016-12-23] MEDS ORDERED: WARFARIN SODIUM5 MG ORAL ×2 (13:48→13:59)
[2016-12-23] MEDS ORDERED: LOVENOX300 MG/3 M SUBQ (13:52)
[2016-12-23] MEDS ORDERED: COUMADIN5 MG ORAL (15:22)
[2016-12-23] MEDS ORDERED: LOVENOX30 MG/0.3 SQ (15:24)
[2016-12-23] MEDS ORDERED: ATIVAN0.5 MG IV (15:27)
[2016-12-23] MEDS ORDERED: MORPHINE 22 MG/1 ML IV (15:28)
[2016-12-23] MEDS ORDERED: MUPIROCIN22 GM TOPIC (15:28)
[2016-12-23] MEDS ORDERED: ZOFRAN4 M3 ORAL (15:29)
[2016-12-23] MEDS ORDERED: AMBIEN5 MG ORAL (15:29)
[2016-12-23] MEDS ORDERED: MIRALAX17 G2 ORAL (15:29)
[2016-12-23 16:00] VITALS: BP 103/57
[2016-12-23] MEDS ORDERED: 1/2 NS 1000ml IV ONE (16:55)
[2016-12-23] MEDS ORDERED: Warfarin Sodium 10mg ORAL ONE (17:00)
--- NOTE | 2016-12-23 17:09 | General Progress Note ---
Assessment/Plan Assessment/Plan ASSESSMENT AND PLAN: 1. Acute deep venous thrombosis of right leg, at the common femoral vein. --> continue coumadin, heparin drip has been started as well to bridge. INR goal between 2-3. Ok to DC heparin once inr reaches 2. 2. Anemia secondary to chronic disease. Work up reviewed. No iron deficiency. Watch counts 3. Anemia secondary to hemodilution. 4. Hyperlipidemia management as per the primary physician. 5. Chronic kidney disease. Subjective Constitutional: Reports: no symptoms HEENT: Reports: no symptoms Cardiovascular: Reports: no symptoms Respiratory: Reports: no symptoms Gastrointestinal/Abdominal: Reports: no symptoms Genitourinary: Reports: no symptoms 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: Reports: no symptoms Endocrine: Reports: no symptoms Hematologic/Lymphatic: Reports: no symptoms Allergies: Coded Allergies: No Known Allergies (Unverified , 12/18/16) Subjective no major changes Objective Last 24 Hour Vital Signs Date Time Temp Pulse Resp B/P (MAP) Pulse Ox O2 Delivery O2 Flow Rate FiO2 12/23/16 16:00 97.9 65 20 103/57 96 Room Air 12/23/16 12:15 97.4 66 19 132/68 99 Room Air 12/23/16 09:11 64 122/59 12/23/16 09:00 122/59 12/23/16 09:00 64 122/59 12/23/16 08:15 97.3 64 20 122/59 97 Room Air 12/23/16 04:13 98.2 65 20 134/69 95 Room Air 12/23/16 00:00 98.2 71 20 141/76 98 Room Air 12/22/16 21:00 67 138/69 12/22/16 21:00 67 138/69 12/22/16 20:00 98.4 67 20 138/69 94 Room Air Intake and Output 12/23/16 12/24/16 19:00 07:00 Intake Total 240 ml Balance 240 ml Intake Oral 240 ml Laboratory Tests 12/23/16 04:10: White Blood Count 10.5, Red Blood Count 3.72L, Hemoglobin 10.3L, Hematocrit 33.5L, Mean Corpuscular Volume 90, Mean Corpuscular Hemoglobin 27.7, Mean Corpuscular Hemoglobin Concent 30.7L, Red Cell Distribution Width 12.6, Platelet Count 293, Mean Platelet Volume 6.7, Neutrophils (%) (Auto) 52.4, Lymphocytes (%) (Auto) 38.6, Monocytes (%) (Auto) 4.9, Eosinophils (%) (Auto) 3.0, Basophils (%) (Auto) 1.1, Prothrombin Time 11.6H, Prothromb Time International Ratio 1.1, Activated Partial Thromboplast Time 99H, Sodium Level 143, Potassium Level 4.7, Chloride Level 107, Carbon Dioxide Level 23, Anion Gap 13, Blood Urea Nitrogen 81H, Creatinine 1.5H, Estimat Glomerular Filtration Rate 42.3, Glucose Level 103, Calcium Level 8.9 12/23/16 12:25: Activated Partial Thromboplast Time 81H Height (Feet): 5 Height (Inches): 8.00 Weight (Pounds): 228 General Appearance: no apparent distress EENT: normal ENT inspection Neck: normal alignment Cardiovascular: regular rhythm Respiratory/Chest: normal breath sounds Skin: normal pigmentation, warm/dry Fernando Delgado Dec 23, 2016 17:09
--- NOTE | 2016-12-23 22:28 | Pulmonology Progress Note ---
Assessment/Plan Problems: (1) DVT (deep venous thrombosis) (2) HTN (hypertension) (3) Diabetes mellitus Assessment/Plan on heparin and comadin symptomatic treatment Hem consult reviewed sliding scale diabetic diet dc planning Subjective ROS Limited/Unobtainable: No Constitutional: Reports: no symptoms HEENT: Repors: no symptoms Respiratory: Reports: no symptoms Allergies: Coded Allergies: No Known Allergies (Unverified , 12/18/16) Objective Last 24 Hour Vital Signs Date Time Temp Pulse Resp B/P (MAP) Pulse Ox O2 Delivery O2 Flow Rate FiO2 12/23/16 16:00 97.9 65 20 103/57 96 Room Air 12/23/16 12:15 97.4 66 19 132/68 99 Room Air 12/23/16 09:11 64 122/59 12/23/16 09:00 122/59 12/23/16 09:00 64 122/59 12/23/16 08:15 97.3 64 20 122/59 97 Room Air 12/23/16 04:13 98.2 65 20 134/69 95 Room Air 12/23/16 00:00 98.2 71 20 141/76 98 Room Air Intake and Output 12/23/16 12/24/16 18:59 06:59 Intake Total 240 ml Balance 240 ml Intake Oral 240 ml General Appearance: WD/WN HEENT: normocephalic, atraumatic Respiratory/Chest: chest wall non-tender, lungs clear Breasts: no masses Cardiovascular: normal peripheral pulses Abdomen: normal bowel sounds, soft, non tender Extremities: no clubbing Skin: no lesions 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 Laboratory Tests 12/23/16 04:10: White Blood Count 10.5, Red Blood Count 3.72L, Hemoglobin 10.3L, Hematocrit 33.5L, Mean Corpuscular Volume 90, Mean Corpuscular Hemoglobin 27.7, Mean Corpuscular Hemoglobin Concent 30.7L, Red Cell Distribution Width 12.6, Platelet Count 293, Mean Platelet Volume 6.7, Neutrophils (%) (Auto) 52.4, Lymphocytes (%) (Auto) 38.6, Monocytes (%) (Auto) 4.9, Eosinophils (%) (Auto) 3.0, Basophils (%) (Auto) 1.1, Prothrombin Time 11.6H, Prothromb Time International Ratio 1.1, Activated Partial Thromboplast Time 99H, Sodium Level 143, Potassium Level 4.7, Chloride Level 107, Carbon Dioxide Level 23, Anion Gap 13, Blood Urea Nitrogen 81H, Creatinine 1.5H, Estimat Glomerular Filtration Rate 42.3, Glucose Level 103, Calcium Level 8.9 12/23/16 12:25: Activated Partial Thromboplast Time 81H GEORGE HERNANDEZ Dec 23, 2016 22:28
--- NOTE | 2016-12-24 10:18 | Diagnostic Imaging Report ---
Indication: Abnormal renal function tests Technique: Grayscale and duplex images of the kidneys, retroperitoneum, and bladder were obtained. Comparison:None Findings: Right kidney measures and cm in length. Left kidney measures 9.3 cm in length. Both kidneys demonstrate normal echogenicity. No hydronephrosis. No focal abnormality. Normal inferior vena cava. Bladder demonstrates equivocal mild wall thickening. Impression: Equivocal mild bladder wall thickening. Nonspecific, could indicate cystitis or chronic bladder outlet obstruction if real Negative for hydronephrosis.
--- NOTE | 2016-12-25 10:06 | Discharge Summary ---
Discharge Summary Hospital Course Date of Admission Dec 19, 2016 at 21:07 Date of Discharge Dec 23, 2016 at 16:56 Admitting Diagnosis deep vein thrombosis SANGEETHA Mehta is a 66 year old female who was admitted on Dec 19, 2016 at 21: 07 for Deep Vein Thrombosis Hospital Course [id number] Discharge Discharge Disposition Patient was discharged to SNF/Subacute Facility(03) Discharge Diagnoses: Ann Whitt NP Dec 25, 2016 10:06
--- NOTE | 2016-12-26 01:15 | Discharge Summary 2 SIG ---
DATE OF ADMISSION: 12/19/2016 DATE OF DISCHARGE: 12/23/2016 CONSULTANTS: 1. Bridget Mohr M.D. 2. Fernando Delgado M.D. 3. Arnoldo Mosher M.D. Brief Hospital Course: The patient is a 66-year-old female with history of hypertension, chronic kidney disease, and diabetes mellitus, who [facility] of acute DVT on right lower extremity. Venous duplex xcan done in ED and again showed acute thrombus in the common femoral and superficial femoral vein. She was given Lovenox at ED and was then admitted to Med/Surg where she was started on heparin drip on bridge with Coumadin. Creatinine was elevated to 1.5 and BUN 70. Potassium was 5.0. Renal ultrasound showed mild bladder wall thickening. Both kidneys showed normal echogenicity with no hydronephrosis. She was given gentle intravenous hydration with normal saline. She was continued with her antihypertensives, nifedipine XL 30 mg at bedtime, Norvasc 5 mg daily, labetalol 100 mg b.i.d., and Cozaar 25 mg daily. She came in with a right heel DTI pressure ulcer and was given wound care. Anemia workup done showed anemia secondary to chronic disease with no iron deficiency. She was continued on Coumadin, INR goal between 2 to 3. She was eventually discharged back to SNF. FINAL DIAGNOSES: 1. Acute deep venous thrombosis, right leg. 2. Chronic kidney disease. 3. Hypertension. 4. Anemia of chronic disease. 5. Anemia secondary to hemodilution. 6. Hyperlipidemia, started on statin. 7. Diabetes mellitus. DISPOSITION: The patient was discharged to [facility]. Discharge Medications: Refer to medication list. Continue with warfarin 5 mg daily. Froilan Joel D.O. I have been assigned to dictate discharge summary on this account and I was not involved in the patient's management. Jamaal GilesP. DR: JAMIR JOB#: [id number] CC: YESI
--- NOTE | 2016-12-26 15:55 | Cardiology Report ---
APPROVED REPORT EKG Measurement Heart [id number] Normal sinus rhythm Normal ECG
== END 2016-12-23 16:56 | DRG 301 ==
LOC: EDBD 20:32 → EDBEDREQ 20:46 → EMR 21:00 → 4E 21:07 → EDBEDREQ 22:04 → 4E 12-22 11:27
DX: I82.411 Acute embolism and thrombosis of right femoral vein (principal); E11.22 Type 2 diabetes mellitus with diabetic chronic kidney disease; I12.9 Hypertensive chronic kidney disease with stage 1 through stage 4 chronic kidney disease, or unspecified chronic kidney disease; N18.9 Chronic kidney disease, unspecified; Z86.73 Personal history of transient ischemic attack (TIA), and cerebral infarction without residual deficits; D63.8 Anemia in other chronic diseases classified elsewhere; E78.5 Hyperlipidemia, unspecified; L89.610 Pressure ulcer of right heel, unstageable
CPT/HCPCS: 36415; 71010; 76775; 80048; 80053; 80061; 82607; 82728; 82746; 82962; 83036; 83540; 83550; 83880; 85025; 85379; 85610; 85730; 87081; 93005; 93971; 99283; 99285